=== PATIENT | female | born 1955 | race Caucasian/White ===

== ENCOUNTER → 2017-02-01 | Outpatient (CLI) | payer OTHER ==
[~2017-02-01] MED LIST: COQ-10100 MG PO; DAILY VALUE1 EACH PO; FLEXERIL5 MG PO; LEVBID0.375 MG PO; PRILOSEC20 MG PO; SUPER B-50 COM1 EACH PO; VITAMIN D31000 UNIT PO; VITAMIN E400 UNIT PO; ZIAC 5/6.251 TABLET PO; ZOCOR40 MG PO; ZOLOFT50 MG PO
== END | disposition home or self-care (01) ==
LOC: CDC 14:36
DX: K82.4 Cholesterolosis of gallbladder (principal)
CPT/HCPCS: 93000

== ENCOUNTER 2017-02-19 08:24 | Day surgery (SDC) | payer OTHER ==
[~2017-02-19] VITALS: Ht 167.6 cm; Wt 70.5 kg
[2017-02-19 08:48] VITALS: BP 153/83
[2017-02-19] MEDS ORDERED: COLACE100 MG PO (14:05)
[2017-02-19] MEDS ORDERED: PERCOCET 5/31 TABLET PO (14:05)
[2017-02-19 15:15] VITALS: BP 133/62
[2017-02-19 16:30] VITALS: BP 151/83
[2017-02-19 17:45] VITALS: BP 170/76
== END 2017-02-19 17:45 | disposition home or self-care (01) ==
LOC: SDC 08:24
PROC: 0FT44ZZ Resection of Gallbladder, Percutaneous Endoscopic Approach (ICD-10-PCS; principal; 2017-02-19)
DX: K80.10 Calculus of gallbladder with chronic cholecystitis without obstruction (principal); D13.5 Benign neoplasm of extrahepatic bile ducts; E78.5 Hyperlipidemia, unspecified; I10 Essential (primary) hypertension; F32.9 Major depressive disorder, single episode, unspecified; K58.0 Irritable bowel syndrome with diarrhea; Z86.010 Personal history of colon polyps; Z86.19 Personal history of other infectious and parasitic diseases; Z96.659 Presence of unspecified artificial knee joint; Z90.710 Acquired absence of both cervix and uterus; Z80.0 Family history of malignant neoplasm of digestive organs; Z82.49 Family history of ischemic heart disease and other diseases of the circulatory system; Z83.49 Family history of other endocrine, nutritional and metabolic diseases
CPT/HCPCS: 88304; J1100; J1170; J1885; J2250; J2405; J2710; J3010